=== PATIENT | female | born 1935 | race Asian ===

== ENCOUNTER 2019-06-20 10:22 | Inpatient (IN) | payer MEDICARE, MEDICAID ==
[~2019-06-20] VITALS: Ht 160 cm; Wt 63.6 kg
--- NOTE | 2019-06-20 10:39 | NUR ---
ED Nurse Note: PT BROUGHT IN TO ER TODAY BY [id number] FROM [place]. PT STATES SHE WAS WALKING, TRIPPED AND FELL. PT DENIES HEAD TRAUMA OR LOC. PT C/O LEFT HIP PAIN WITH ACTIVITY. PT DENIES PAIN AT REST. PER EMS, PT WAS AMBULATORY ON SCENE BUT AT BEDSIDE, PT STRUGGLES TO WALK [place] ER [facility]. PT AMBULATES WITH FULL ASSIST. LIMITED ROM OF LEFT LEG, FULL ROM OF KNEE, ANKLE AND DIGITS. CIRCULATION AND SENSATION INTACT, CAP REFILL <2 SECONDS. NO EXTERNAL ROTATION OR SHORTENING OF LEG NOTED.
--- NOTE | 2019-06-20 10:40 | NUR ---
ED Nurse Note: NO BRUISING OR BLEEDING NOTED TO LEFT HIP.
[2019-06-20 10:43] VITALS: BP 134/53
[2019-06-20] MEDS ORDERED: Morphine Sulfate 2mg/ml Inj(IV/IM USE ONLY) IVP ONE (10:45)
--- NOTE | 2019-06-20 10:50 | NUR ---
ED Nurse Note: XRAY AT BEDSIDE.
[2019-06-20 10:59] LABS: BASOPHILS % (AUTO) 0.9 % (0.0-2.0); EOSINOPHILS % (AUTO) 0.9 % (0.0-3.0); HEMATOCRIT 44.5 % (37.0-47.0); HEMOGLOBIN 14.9 G/DL (12.0-16.0); LYMPHOCYTES % (AUTO) 18.3 % (20.0-45.0); MEAN CORPUSCULAR VOLUME 91 FL (80-99); MONOCYTES % (AUTO) 6.5 % (1.0-10.0); NEUTROPHILS % (AUTO) 73.4 % (45.0-75.0); PLATELET COUNT 158 K/UL (150-450); RED BLOOD COUNT 4.87 M/UL (4.20-5.40); RED CELL DISTRIBUTION WIDTH 11.5 % (11.6-14.8); WHITE BLOOD COUNT 7.5 K/UL (4.8-10.8)
--- NOTE | 2019-06-20 11:03 | NUR ---
ED Nurse Note: PT TO CT VIA [facility].
[2019-06-20 11:08] LABS: INR 0.9 (0.9-1.1)
--- NOTE | 2019-06-20 11:16 | NUR ---
ED Nurse Note: PT BACK FROM CT VIA [facility].
[2019-06-20 11:51] LABS: ANION GAP 13 mmol/L (5-15); BLOOD UREA NITROGEN 16 mg/dL (7-18); CALCIUM 9.1 MG/DL (8.5-10.1); CARBON DIOXIDE 25 MMOL/L (21-32); CHLORIDE 102 MMOL/L (98-107); CREATININE 0.8 MG/DL (0.55-1.30); POTASSIUM 4.5 MMOL/L (3.5-5.1); SODIUM 139 MMOL/L (136-145)
[2019-06-20 11:59] LABS: ALANINE AMINOTRANSFERASE 34 U/L (12-78); ALBUMIN 3.7 G/DL (3.4-5.0); ALKALINE PHOSPHATASE 65 U/L (46-116); ASPARTATE AMINO TRANSFERASE 35 U/L (15-37); BILIRUBIN,TOTAL 0.8 MG/DL (0.2-1.0)
--- NOTE | 2019-06-20 12:00 | Diagnostic Imaging Report ---
EXAM: CT Pelvis Without Intravenous Contrast CLINICAL HISTORY: PAIN TECHNIQUE: Axial computed tomography images of the pelvis without intravenous contrast. CTDI is 81.7 mGy and DLP is 2705.5 mGy-cm. One or more of the following dose reduction techniques were used: automated exposure control, adjustment of the mA and or kV according to patient size, use of iterative reconstruction technique. COMPARISON: Left femur radiographs on 06 20 2019 FINDINGS: Bowel: Unremarkable. No obstruction. No mucosal thickening. Appendix: No findings to suggest acute appendicitis. Intraperitoneal space: Trace fluid in the pelvis. No free air. Bladder: Mild prominence of the bladder wall is nonspecific. Please correlate with urinalysis if concerned for cystitis. No stones. Reproductive: Prior hysterectomy. Bones joints: Nondisplaced fracture of the left sacrum. Nondisplaced, comminuted fractures of the left superior and inferior pubic rami. Osteopenia. Grade 1 anterolisthesis of L4 on L5. No dislocation. Soft tissues: Small fat-containing umbilical hernia. Vasculature: Extensive vascular calcifications. No lower abdominal aortic aneurysm. Lymph nodes: Nonspecific fat stranding and mildly prominent lymph nodes in the right inguinal region. IMPRESSION: 1. Nondisplaced fracture of the left sacrum. Nondisplaced, comminuted fractures of the left superior and inferior pubic rami. 2. Mild prominence of the bladder wall is nonspecific. Please correlate with urinalysis if concerned for cystitis.
--- NOTE | 2019-06-20 12:15 | Diagnostic Imaging Report ---
EXAM: XR Left Femur, 2 Views CLINICAL HISTORY: PAIN TECHNIQUE: Frontal and lateral views of the left femur. COMPARISON: None FINDINGS: Bones joints: Irregularity of the superior and inferior left pubic rami, concerning for fractures. Osteopenia. No left hip dislocation. Soft tissues: Vascular calcifications. IMPRESSION: Irregularity of the superior and inferior left pubic rami, concerning for fractures.
[2019-06-20 12:23] VITALS: BP 145/47
--- NOTE | 2019-06-20 12:47 | Emergency Room Report ---
History of Present Illness General Chief Complaint: Multiple Trauma/Fall Source: Patient Present Illness HPI 84-year-old female presents ED for evaluation. Had a mechanical trip and fall home today. No reported head injury. Complaining of left hip pain. Dull, 9 out of 10, nonradiating. Unable to walk. Denies hitting her head or LOC. No other aggravating or relieving factors. Denies any other associated symptoms Allergies: Coded Allergies: No Known Allergies (Unverified , 06/20/19) Patient History Past Medical History: DM, HTN Past Surgical History: none Pertinent Family History: none Social History: Denies: smoking, alcohol use, drug use Now: No Immunizations: UTD Reviewed Nursing Documentation: PMH: Agreed; PSxH: Agreed Nursing Documentation-PMH Hx Hypertension: Yes Hx Diabetes: Yes Review of Systems All Other Systems: negative except mentioned in HPI Physical Exam Vital Signs Date Time Temp Pulse Resp B/P (MAP) Pulse Ox O2 Delivery O2 Flow Rate FiO2 06/20/19 10:19 98.1 80 16 112/50 (70) 95 Room Air Sp02 EP Interpretation: reviewed, normal General Appearance: no apparent distress, alert, GCS 15, non-toxic Head: normocephalic Eyes: bilateral eye normal inspection, bilateral eye PERRL ENT: normal ENT inspection Neck: normal inspection Respiratory: normal inspection Cardiovascular #1: normal inspection Gastrointestinal: normal inspection Rectal: deferred Genitourinary: no CVA tenderness Musculoskeletal: decreased range of motion, tender - L hip pain Neurologic: alert, oriented x3, responsive, motor strength/tone normal, sensory intact, speech normal Psychiatric: normal inspection Skin: no rash Lymphatic: normal inspection Medical Decision Making Diagnostic Impression: Primary Impression: Pelvic fracture Qualified Codes: S32.9XXA - Fracture of unspecified parts of lumbosacral spine and pelvis, initial encounter for closed fracture Additional Impressions: Fall Qualified Codes: W19.XXXA - Unspecified fall, initial encounter Unable to walk ER Course Hospital Course 84-year-old female presents to ED with L hip pain s/p fall Differential diagnoses include: fracture, dislocation, contusion Clinical course Patient placed on stretcher. After initial history and physical I ordered labs , pain medication and imaging studies Labs reviewed- no leukocytosis noted, electrolytes okay, hemoglobin/hematocrit okay CT pelvis shows nondisplaced fracture of the left sacrum, nondisplaced fractures of the left superior and inferior pubic rami She is unable to walk. not safe for discharge and will require admission Case discussed with Dr. Antoine who agreed to consult on this case. Case discussed with Dr. Aguilar who agreed to accept the patient to his service for further care and support i. I feel this is a highly complex case requiring extensive working including EKG/Rhythm strip, Xray/CT/US, Blood/urine lab work, repeat exams while in ED, and administration of strong opiates/narcotics for pain control, admission to hospital or close patient follow up. Diagnosis - pelvic fx, fall, unable to walk Admitted to floor in serious condition Labs Test 06/20/19 10:40 White Blood Count 7.5 K/UL (4.8-10.8) Red Blood Count 4.87 M/UL (4.20-5.40) Hemoglobin 14.9 G/DL (12.0-16.0) Hematocrit 44.5 % (37.0-47.0) Mean Corpuscular Volume 91 FL (80-99) Mean Corpuscular Hemoglobin 30.6 PG (27.0-31.0) Mean Corpuscular Hemoglobin Concent 33.4 G/DL (32.0-36.0) Red Cell Distribution Width 11.5 % (11.6-14.8) Platelet Count 158 K/UL (150-450) Mean Platelet Volume 9.4 FL (6.5-10.1) Neutrophils (%) (Auto) 73.4 % (45.0-75.0) Lymphocytes (%) (Auto) 18.3 % (20.0-45.0) Monocytes (%) (Auto) 6.5 % (1.0-10.0) Eosinophils (%) (Auto) 0.9 % (0.0-3.0) Basophils (%) (Auto) 0.9 % (0.0-2.0) Prothrombin Time 10.0 SEC (9.30-11.50) Prothromb Time International Ratio 0.9 (0.9-1.1) Activated Partial Thromboplast Time 25 SEC (23-33) Sodium Level 139 MMOL/L (136-145) Potassium Level 4.5 MMOL/L (3.5-5.1) Chloride Level 102 MMOL/L (98-107) Carbon Dioxide Level 25 MMOL/L (21-32) Anion Gap 13 mmol/L (5-15) Blood Urea Nitrogen 16 mg/dL (7-18) Creatinine 0.8 MG/DL (0.55-1.30) Estimat Glomerular Filtration Rate mL/min (>60) Glucose Level 253 MG/DL (74-106) Calcium Level 9.1 MG/DL (8.5-10.1) Total Bilirubin 0.8 MG/DL (0.2-1.0) Aspartate Amino Transf (AST/SGOT) 35 U/L (15-37) Alanine Aminotransferase (ALT/SGPT) 34 U/L (12-78) Alkaline Phosphatase 65 U/L (46-116) Total Protein 7.3 G/DL (6.4-8.2) Albumin 3.7 G/DL (3.4-5.0) Globulin 3.6 g/dL Albumin/Globulin Ratio 1.0 (1.0-2.7) Other X-Ray Diagnostic Results Other X-Ray Diagnostic Results : X-Ray ordered: L femur # of Views/Limited Vs Complete: 3 View Indication: Pain Interpretation: no dislocation, no soft tissue swelling, other - superior/ inferior pubic rami fx. L sacrum fx Impression: Other - fx Electronically Signed by: Electronically signed by Corby Fermin MD CT/MRI/US Diagnostic Results CT/MRI/US Diagnostic Results : Imaging Test Ordered: CT Pelvis Impression IMPRESSION: 1. Nondisplaced fracture of the left sacrum. Nondisplaced, comminuted fractures of the left superior and inferior pubic rami. 2. Mild prominence of the bladder wall is nonspecific. Please correlate with urinalysis if concerned for cystitis. Last Vital Signs Date Time Temp Pulse Resp B/P (MAP) Pulse Ox O2 Delivery O2 Flow Rate FiO2 06/20/19 12:23 98.4 71 21 145/47 97 Room Air Status: improved Disposition: ADMITTED INPATIENT Condition: Serious Referrals: NOT CHOSEN IPA/,REFERRING (PCP) Corby Fermin MD Jun 20, 2019 12:47
--- NOTE | 2019-06-20 14:19 | NUR ---
ED Nurse Note: report given to Godwin Boyd, endorsed all plan of care to Godwin BOYD.
--- NOTE | 2019-06-20 14:45 | NUR ---
NURSE NOTES: Received pt from ER via gurney. Report given by KATT Simmons. Room air. AAO x 4. No s/s of distress. C/O of 8/10 pain on left hip when pt moves. Vital sign BP 139/51 RI 78 T 99.6 RR 19 SpO2 91%. IV on R FA 20g intact and patent, with saline lock. Skin intact. All belongings are accounted for. Orientation on the unit given. Paged for admission orders and awaiting for response. Side rails x2. Bed in the lowest, locked, and alarm on. Call light within reach. Will continue to monitor
[2019-06-20] MEDS ORDERED: oxyCODONE 5mg IR tab ORAL PRN (15:00)
[2019-06-20] MEDS ORDERED: Miralax 17gm pkt ORAL PRN (15:00)
--- NOTE | 2019-06-20 15:18 | History and Physical ---
History of Present Illness General Date patient seen: Jun 20, 2019 Time patient seen: 14:00 Reason for Hospitalization: Multiple Trauma/Fall Present Illness HPI Mitchel Bahena is a 84 yo woman with PMH of IDDM, CAD, and HTN who presented after mechanical fall outside. Slovenian translation provided by RN at bedside. Patient states she was walking outdoors on the sidewalk while it was raining when she slipped and fell to the side. She endorses pain in left hip, sharp, non radiating, now only ~2/10 after morphine given in ED. Denies any trauma to the head or LOC. Denies any fever, chills, nausea, vomiting, dizziness, lightheadedness. Patient not a great historian and besides DM, HTN, and "heart disease" was unable to provide other medical history, notes her memory has not been as good as before. Also states she takes 11 medications at home but unable to provide names or doses of any medication besides "insulin." States she gets her medications at [facility], attempted to obtain medication reconciliation from pharmacy but staff at pharmacy did not speak Pakistani, attempted to recall with RN at phone providing translation but no one answered after several attempts. Patient states she lives alone at home, has been very independent, does not require assistive device for ambulation. States she has a daughter in [place] but does not want medical staff to notify daughter of her admission as she does not want to bother her. States she has help around the house from caregiver 3x a week. Also has many friends at [employer] who provide support. Allergies: Coded Allergies: No Known Allergies (Unverified , 06/20/19) Medication History Medications Narrative Insulin Patient History History Provided By: Patient, Medical Record Healthcare decision maker Resuscitation status Full Code Advanced Directive on File Patient History Narrative "heart disease" Past Medical/Surgical History Past Medical/Surgical History: (1) History of diabetes mellitus (2) History of hypertension Family History Family History: Patient reports no known family medical history. Social History Social History: (1) Non-smoker (2) Current non-drinker of alcohol Review of Systems Eye: Reports: no symptoms ENT: Reports: no symptoms Respiratory: Reports: no symptoms Cardiovascular: Reports: no symptoms Gastrointestinal: Reports: no symptoms Genitourinary: Reports: no symptoms Musculoskeletal: Reports: other - left hip pain Skin: Reports: no symptoms Psychiatric: Reports: no symptoms Neurological: Reports: no symptoms Endocrine: Reports: other - uses insulin at home Hematologic/Lymphatic: Reports: no symptoms Physical Exam General Appearance: no apparent distress, alert, alert oriented x3 Lines, tubes and drains: peripheral HEENT: normocephalic, atraumatic, mucous membranes moist, PERRL, EOMI Neck: non-tender, supple Respiratory/Chest: lungs clear, normal breath sounds, no respiratory distress, no accessory muscle use Cardiovascular/Chest: normal peripheral pulses, normal rate, regular rhythm Abdomen: normal bowel sounds, non tender, soft, no mass Extremities: no edema Skin Exam: warm/dry 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 grossly normal, alert, oriented x 3, responsive, normal mood/affect Musculoskeletal: other - left hip ROM limited 2/2 pain Last 24 Hour Vital Signs Date Time Temp Pulse Resp B/P (MAP) Pulse Ox O2 Delivery O2 Flow Rate FiO2 06/20/19 14:55 Room Air 06/20/19 14:20 98.3 74 18 132/56 98 Room Air 06/20/19 12:23 98.4 71 21 145/47 97 Room Air 06/20/19 10:43 98.2 72 24 134/53 Room Air 06/20/19 10:43 72 24 Room Air 06/20/19 10:19 98.1 80 16 112/50 (70) 95 Room Air Laboratory Tests Test 06/20/19 10:40 White Blood Count 7.5 K/UL (4.8-10.8) Red Blood Count 4.87 M/UL (4.20-5.40) Hemoglobin 14.9 G/DL (12.0-16.0) Hematocrit 44.5 % (37.0-47.0) Mean Corpuscular Volume 91 FL (80-99) Mean Corpuscular Hemoglobin 30.6 PG (27.0-31.0) Mean Corpuscular Hemoglobin Concent 33.4 G/DL (32.0-36.0) Red Cell Distribution Width 11.5 % (11.6-14.8) L Platelet Count 158 K/UL (150-450) Mean Platelet Volume 9.4 FL (6.5-10.1) Neutrophils (%) (Auto) 73.4 % (45.0-75.0) Lymphocytes (%) (Auto) 18.3 % (20.0-45.0) L Monocytes (%) (Auto) 6.5 % (1.0-10.0) Eosinophils (%) (Auto) 0.9 % (0.0-3.0) Basophils (%) (Auto) 0.9 % (0.0-2.0) Prothrombin Time 10.0 SEC (9.30-11.50) Prothromb Time International Ratio 0.9 (0.9-1.1) Activated Partial Thromboplast Time 25 SEC (23-33) Sodium Level 139 MMOL/L (136-145) Potassium Level 4.5 MMOL/L (3.5-5.1) Chloride Level 102 MMOL/L (98-107) Carbon Dioxide Level 25 MMOL/L (21-32) Anion Gap 13 mmol/L (5-15) Blood Urea Nitrogen 16 mg/dL (7-18) Creatinine 0.8 MG/DL (0.55-1.30) Estimat Glomerular Filtration Rate mL/min (>60) Glucose Level 253 MG/DL (74-106) H Calcium Level 9.1 MG/DL (8.5-10.1) Total Bilirubin 0.8 MG/DL (0.2-1.0) Aspartate Amino Transf (AST/SGOT) 35 U/L (15-37) Alanine Aminotransferase (ALT/SGPT) 34 U/L (12-78) Alkaline Phosphatase 65 U/L (46-116) Total Protein 7.3 G/DL (6.4-8.2) Albumin 3.7 G/DL (3.4-5.0) Globulin 3.6 g/dL Albumin/Globulin Ratio 1.0 (1.0-2.7) Height (Feet): 5 Height (Inches): 3.00 Weight (Pounds): 140 Medications Current Medications Medications (Trade) Dose Ordered Sig/Ruchi Route PRN Reason Start Time Stop Time Status Last Admin Dose Admin Acetaminophen (Tylenol) 650 mg Q6H PRN ORAL Mild Pain/Temp > 100.5 06/20/19 15:00 07/20/19 14:59 Dextrose (Dextrose 50%) 25 ml Q30M PRN IV Hypoglycemia 06/20/19 15:00 07/20/19 14:59 Dextrose (Dextrose 50%) 50 ml Q30M PRN IV Hypoglycemia 06/20/19 15:00 07/20/19 14:59 Docusate Sodium (Colace) 100 mg EVERY 12 HOURS ORAL 06/20/19 21:00 07/20/19 20:59 Enoxaparin Sodium (Lovenox) 40 mg DAILY@2100 SUBQ 06/20/19 16:00 07/20/19 15:59 Oxycodone HCl (Roxicodone) 5 mg Q4H PRN ORAL Moderate Pain (Pain Scale 4-6) 06/20/19 15:00 06/27/19 14:59 Oxycodone HCl (Roxicodone) 10 mg Q4H PRN ORAL Severe Pain (Pain Scale 7-10) 06/20/19 15:00 06/27/19 14:59 Polyethylene Glycol (Miralax) 17 gm HSPRN PRN ORAL Constipation 06/20/19 15:00 07/20/19 14:59 Assessment/Plan Status: stable Assessment/Plan: Mitchel Bahena is a 84 yo woman with PMH of HTN, CAD, and IDDM who presented after mechanical fall with left hip pain, found with nondisplaced fracture of left sacrum. Mechanical fall Left pelvic fracture - Orthopedics Dr. Antoine to evaluate, per ED attending no plan for surgery at this time - Pelvic CT: Nondisplaced fracture L sacrum. Nondisplaced comminuted fracture of L superior and inferior pubic rami. - Femur xray: Irregularity of superior and inferior left pubic rami concerning for fracture - Pain control with tylenol 650mg PO q6hrs PRN mild pain, oxycodone 5mg PO q6hrs PRN moderate pain, oxycodone 10mg PO q6hrs PRN severe pain - PT consult. Case management consult for d/c planning, will need rehab IDDM with hyperglycemia - Patient states on insulin at home, unable to state dose - Start levemir 5U qhs and SSI for now - Monitor FS qachs and adjust as needed - Glucose 253 on admission on chemistry HTN, CAD - Patient unable to state which medications she's on at home - Pharmacy does not speak Pakistani ([facility] [phone]) and unable to reach again with RN as health program specialist - BP acceptable at this time, will monitor for need for BP medication FEN: Carbs consistent diet No IVF Lovenox DVT ppx Full Code Discussed with ED attending, patient, and RN. I spent 50 minutes on this patient 's care, including >50% counseling and coordination of care. Diagnosis [place] I: Mechanical fall Left superior and inferior pubic rami fracture IDDM with hyperglycemia hx HTN, CAD Nurys Vargas M.D. Jun 20, 2019 15:18
[2019-06-20 16:00] VITALS: BP 122/52
[2019-06-20] MEDS: Enoxaparin 40mg Inj SUBQ SCH (16:00)
[2019-06-20] MEDS: NovoLOG Insulin Flexpen SUBQ SCH ×2 (16:57→20:52)
--- NOTE | 2019-06-20 19:21 | NUR ---
HAND-OFF: Report given to KATT Nicholson.
--- NOTE | 2019-06-20 19:42 | NUR ---
NURSE NOTES: Received report from KATT Connelly. Patient a/a/o x 4, breathing unlabored without distress, discomfort, or sob on room air. Patient on bedrest and denies pain when she's not moving. IV noted on the right forearm intact, clean, and dry. Bed placed on lowest level with alarm,brake, and siderails up for patient safety. Call light placed within reach. Will continue to monitor and provide care as ordered.
[2019-06-20 20:00] VITALS: BP 115/59
[2019-06-20] MEDS: Docusate 100mg cap ORAL SCH (21:01)
[2019-06-20] MEDS: Levemir Flexpen SUBQ SCH (21:05)
[2019-06-21] VITALS: BP 107/56
[2019-06-21 04:00] VITALS: BP 124/59
[2019-06-21] MEDS: NovoLOG Insulin Flexpen SUBQ SCH ×5 (06:22→21:00)
--- NOTE | 2019-06-21 07:35 | NUR ---
NURSE NOTES: Nurse report given by KATT Nicholson. Patient's awake in bed, eating breakfast. No s/s of distress or SOB. Pain 4/10 at Left hip. IV is patent and asymptomatic. Bed low and locked, call light within reach, side rails x 2, safety precaution is applied. All the needs meet. Will continue to monitor.
--- NOTE | 2019-06-21 07:35 | NUR ---
HAND-OFF: Report given to KATT Bates (Uyen).
[2019-06-21 08:00] VITALS: BP 116/49
[2019-06-21] MEDS: Docusate 100mg cap ORAL SCH ×2 (09:27→20:58)
[2019-06-21] MEDS: oxyCODONE 5mg IR tab ORAL PRN (11:47)
[2019-06-21 12:00] VITALS: BP 126/49
--- NOTE | 2019-06-21 14:00 | NUR ---
NURSE NOTES: Patient was having physical therapist and she felt nauseated. Patient vomited 1 time. Checked Blood glucose: 184. Asked Dr. Vargas to have zofran order for her. Order acknowledged and carried out. Administered 4mg Zofran IVP PRN q6hr. Patient has ice chips. BP 156/68, MT 62, RR 20, 02 89%. Administered prn Oxygen 2L Nasal cannula. Patient O2 goes up between 93-95%. Rechecked Vital sign after 5 minutes post zofran administration: BP 128/50, MT 75, RR 19, O2 95%. Patient stated she feels better with the ice chips, the zofran and sitting down. Patient denies feeling nauseated anymore. Will continue to monitor closely.
[2019-06-21 16:00] VITALS: BP 156/68
--- NOTE | 2019-06-21 16:08 | General Progress Note ---
Assessment/Plan Status: stable Assessment/Plan: Mitchel Bahena is a 84 yo woman with PMH of HTN, CAD, and IDDM who presented after mechanical fall with left hip pain, found with nondisplaced fracture of left sacrum. Mechanical fall Left pelvic fracture - Orthopedics Dr. Antoine to evaluate, per ED attending no plan for surgery at this time. Awaiting ortho recs. - Pelvic CT: Nondisplaced fracture L sacrum. Nondisplaced comminuted fracture of L superior and inferior pubic rami. - Femur xray: Irregularity of superior and inferior left pubic rami concerning for fracture - Pain control with tylenol 650mg PO q6hrs PRN mild pain, oxycodone 5mg PO q6hrs PRN moderate pain, oxycodone 10mg PO q6hrs PRN severe pain - PT consult. Case management consult for d/c planning, will need rehab IDDM with hyperglycemia - Patient states on insulin at home, unable to state dose - Started levemir 5U qhs and SSI, add novolog 2U TID premeal - Monitor FS qachs and adjust as needed HTN, CAD - Patient unable to state which medications she's on at home - Pharmacy does not speak Palestinian ([facility] [phone]) and unable to reach again with RN as operator and truck driver - BP acceptable at this time, will monitor for need for BP medication FEN: Carbs consistent diet No IVF Lovenox DVT ppx Full Code Discussed with patient and RN. I spent 25 minutes on this patient's care, including >50% counseling and coordination of care. Subjective Date patient seen: Jun 21, 2019 Constitutional: Reports: other - pain in left hip, received PRN oxycodone, medication helping HEENT: Reports: no symptoms Cardiovascular: Reports: no symptoms Respiratory: Reports: no symptoms Gastrointestinal/Abdominal: Reports: no symptoms Genitourinary: Reports: no symptoms Neurologic/Psychiatric: Reports: no symptoms Endocrine: Reports: no symptoms Hematologic/Lymphatic: Reports: no symptoms Allergies: Coded Allergies: No Known Allergies (Unverified , 06/20/19) Subjective Patient seen and examined. States intermittent left hip pain worse with movement. Received PRN tylenol and oxycodone with improvement. Objective Last 24 Hour Vital Signs Date Time Temp Pulse Resp B/P (MAP) Pulse Ox O2 Delivery O2 Flow Rate FiO2 06/21/19 12:00 98.3 67 16 126/49 (74) 92 06/21/19 09:00 Room Air 06/21/19 08:00 98.4 70 18 116/49 (71) 98 06/21/19 04:00 97.1 72 18 124/59 (80) 98 06/21/19 00:00 98.7 75 18 107/56 (73) 98 06/20/19 21:00 Room Air 06/20/19 20:00 99.5 75 18 115/59 (77) 98 Intake and Output 06/20/19 06/21/19 19:00 07:00 Intake Total 240 ml 120 ml Output Total 300 ml Balance 240 ml -180 ml Intake Oral 240 ml 120 ml Output Urine Total 300 ml # Voids 1 Height (Feet): 5 Height (Inches): 3.00 Weight (Pounds): 140 General Appearance: no apparent distress, alert Neck: supple Cardiovascular: normal peripheral pulses, normal rate, regular rhythm Respiratory/Chest: lungs clear, normal breath sounds, no respiratory distress Abdomen: normal bowel sounds, non tender, soft Pelvis: other - left hip tenderness Extremities: non-tender Edema: no edema noted Arm (L), no edema noted Arm (R), no edema noted Leg (L), no edema noted Leg (R), no edema noted Pedal (L), no edema noted Pedal (R), no edema noted Generalized Neurologic: alert, responsive, normal mood/affect Skin: warm/dry Nurys Vargas M.D. Jun 21, 2019 16:08
--- NOTE | 2019-06-21 16:14 | NUR ---
PT note PT jose completed, tx initiated. Patient c/o pain on the left hip, increased with any movement. Was able to sit at the EOB with assist of 2 persons. Patient needs PT to address her pain, muscle weakness, transfers,and gait. Will place patient on NWB on the LLE until verified with ortho MD. Addendum: 06/21/19 at 1615 by CHIN NOVOA PT Amended: Links added.
--- NOTE | 2019-06-21 19:23 | NUR ---
HAND-OFF: Report given to KATT Nicholson. Patient's stable, plan of care endorsed. .
--- NOTE | 2019-06-21 19:30 | NUR ---
NURSE NOTES: Received report from KATT Madrigal (Luna). Patient a/a/o x 4, breathing unlabored without distress, discomfort, or sob on 2L O2 via NC. Denies pain at this time. Patient nauseated and vomited during previous shift. Currently taking ice chips. Patient verbalized that ice chip helps to control the nauseating sensation. IV site on right forearm intact, clean, and dry. Bed placed at the lowest with alarm, brake, and siderails up for safety. Call light placed within reach. Will continue to monitor and provide care as ordered.
[2019-06-21 20:00] VITALS: BP 125/62
[2019-06-21] MEDS: Levemir Flexpen SUBQ SCH (21:00)
[2019-06-21] MEDS: Enoxaparin 40mg Inj SUBQ SCH (21:01)
[2019-06-22] VITALS: BP 133/52
[2019-06-22 04:00] VITALS: BP 150/63
[2019-06-22] MEDS: NovoLOG Insulin Flexpen SUBQ SCH ×7 (06:09→20:18)
[2019-06-22 07:02] LABS: BASOPHILS % (AUTO) 0.7 % (0.0-2.0); EOSINOPHILS % (AUTO) 2.3 % (0.0-3.0); HEMATOCRIT 40.4 % (37.0-47.0); HEMOGLOBIN 13.9 G/DL (12.0-16.0); LYMPHOCYTES % (AUTO) 12.8 % (20.0-45.0); MEAN CORPUSCULAR VOLUME 91 FL (80-99); MONOCYTES % (AUTO) 8.1 % (1.0-10.0); NEUTROPHILS % (AUTO) 76.1 % (45.0-75.0); PLATELET COUNT 142 K/UL (150-450); RED BLOOD COUNT 4.43 M/UL (4.20-5.40); RED CELL DISTRIBUTION WIDTH 11.9 % (11.6-14.8); WHITE BLOOD COUNT 7.3 K/UL (4.8-10.8)
[2019-06-22 07:16] LABS: ANION GAP 7 mmol/L (5-15); BLOOD UREA NITROGEN 14 mg/dL (7-18); CALCIUM 8.7 MG/DL (8.5-10.1); CARBON DIOXIDE 26 MMOL/L (21-32); CHLORIDE 107 MMOL/L (98-107); CREATININE 0.8 MG/DL (0.55-1.30); POTASSIUM 3.9 MMOL/L (3.5-5.1); SODIUM 140 MMOL/L (136-145)
--- NOTE | 2019-06-22 07:59 | NUR ---
HAND-OFF: Report given to KATT North.
[2019-06-22 08:00] VITALS: BP 131/53
[2019-06-22] MEDS: Docusate 100mg cap ORAL SCH ×2 (08:24→20:15)
--- NOTE | 2019-06-22 09:35 | General Progress Note ---
Assessment/Plan Problem List: (1) Fall ICD Codes: W19.XXXA - Unspecified fall, initial encounter SNOMED: 8889290, 246536986 Qualifiers: Qualified Codes: W19.XXXA - Unspecified fall, initial encounter (2) Pelvic fracture ICD Codes: S32.9XXA - Fracture of unspecified parts of lumbosacral spine and pelvis, initial encounter for closed fracture SNOMED: 79286340 Qualifiers: Qualified Codes: S32.9XXA - Fracture of unspecified parts of lumbosacral spine and pelvis, initial encounter for closed fracture (3) Unable to walk ICD Codes: R26.2 - Difficulty in walking, not elsewhere classified SNOMED: 873910884 (4) History of hypertension ICD Codes: Z86.79 - Personal history of other diseases of the circulatory system SNOMED: 852566306 (5) History of diabetes mellitus ICD Codes: Z86.39 - Personal history of other endocrine, nutritional and metabolic disease SNOMED: 639719013 Status: stable Assessment/Plan: Mitchel Bahena is a 84 yo woman with PMH of HTN, CAD, and IDDM who presented after mechanical fall with left hip pain, found with nondisplaced fracture of left sacrum. Mechanical fall Left pelvic fracture - Orthopedics Dr. Antoine to evaluate, per ED attending no plan for surgery at this time. Awaiting ortho recs. will contact. - Pelvic CT: Nondisplaced fracture L sacrum. Nondisplaced comminuted fracture of L superior and inferior pubic rami. - Femur xray: Irregularity of superior and inferior left pubic rami concerning for fracture - Pain control with tylenol 650mg PO q6hrs PRN mild pain, oxycodone 5mg PO q6hrs PRN moderate pain, oxycodone 10mg PO q6hrs PRN severe pain - PT consult. 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 RN is calling the pharmacy. I will reconcile home meds with her. FEN: Carbs consistent diet No IVF Lovenox DVT ppx Full Code Discussed with patient and RN. I spent 25 minutes on this patient's care, including >50% counseling and coordination of care. Subjective Date patient seen: Jun 22, 2019 ROS Limited/Unobtainable: No Constitutional: Reports: other - left hip pain; Denies: no symptoms, chills, diaphoresis, fever, malaise, weakness HEENT: Denies: no symptoms, eye pain, blurred vision, tearing, double vision, ear pain, ear discharge, nose pain, nose congestion, throat pain, throat swelling, mouth pain, mouth swelling, other Cardiovascular: Denies: no symptoms, chest pain, edema, irregular heart rate, lightheadedness, palpitations, syncope, other Respiratory: Denies: no symptoms, cough, orthopnea, shortness of breath, SOB with excertion, SOB at rest, sputum, stridor, wheezing, other Gastrointestinal/Abdominal: Denies: no symptoms, abdomen distended, abdominal pain, black stools, tarry stools, blood in stool, constipated, diarrhea, difficulty swallowing, nausea, poor appetite, poor fluid intake, rectal bleeding , vomiting, other Genitourinary: Denies: no symptoms, burning, discharge, frequency, flank pain, hematuria, incontinence, pain, urgency, other Neurologic/Psychiatric: Denies: no symptoms, anxiety, depressed, emotional problems, headache, numbness, paresthesia, pre-existing deficit, seizure, tingling, tremors, weakness, other Endocrine: Denies: no symptoms, excessive sweating, flushing, intolerance to cold, intolerance to heat, increased hunger, increased thirst, increased urine, unexplained weight gain, unexplained weight loss, other Hematologic/Lymphatic: Denies: no symptoms, anemia, easy bleeding, easy bruising, other Allergies: Coded Allergies: No Known Allergies (Unverified , 06/20/19) Subjective Swedish speaking Nurse [place] speaker translating c/p left hip pain has a daughter in [place], doesn't want us to contact her daughter Objective Last 24 Hour Vital Signs Date Time Temp Pulse Resp B/P (MAP) Pulse Ox O2 Delivery O2 Flow Rate FiO2 06/22/19 08:00 98.2 74 18 131/53 (79) 95 06/22/19 04:00 98.4 75 18 150/63 (92) 93 06/22/19 00:00 99.0 73 19 133/52 (79) 96 06/21/19 21:00 Room Air 06/21/19 20:00 98.0 73 19 125/62 (83) 97 06/21/19 16:00 98.6 75 17 156/68 (97) 94 06/21/19 12:00 98.3 67 16 126/49 (74) 92 Intake and Output 06/21/19 06/22/19 19:00 07:00 Intake Total 350 ml 300 ml Balance 350 ml 300 ml Intake Oral 350 ml 300 ml # Voids 2 1 Laboratory Tests 06/22/19 06:05: White Blood Count 7.3, Red Blood Count 4.43, Hemoglobin 13.9, Hematocrit 40.4, Mean Corpuscular Volume 91, Mean Corpuscular Hemoglobin 31.3H, Mean Corpuscular Hemoglobin Concent 34.4, Red Cell Distribution Width 11.9, Platelet Count 142L, Mean Platelet Volume 9.4, Neutrophils (%) (Auto) 76.1H, Lymphocytes (%) (Auto) 12.8L, Monocytes (%) (Auto) 8.1, Eosinophils (%) (Auto) 2.3, Basophils (%) (Auto ) 0.7, Sodium Level 140, Potassium Level 3.9, Chloride Level 107, Carbon Dioxide Level 26, Anion Gap 7, Blood Urea Nitrogen 14, Creatinine 0.8, Estimat Glomerular Filtration Rate , Glucose Level 214H, Hemoglobin A1c 8.7H, Calcium Level 8.7 Height (Feet): 5 Height (Inches): 3.00 Weight (Pounds): 140 Objective General Appearance: no apparent distress, alert Neck: supple Cardiovascular: normal peripheral pulses, normal rate, regular rhythm Respiratory/Chest: lungs clear, normal breath sounds, no respiratory distress Abdomen: normal bowel sounds, non tender, soft Pelvis: other - left hip tenderness Extremities: non-tender Edema: no edema noted Arm (L), no edema noted Arm (R), no edema noted Leg (L), no edema noted Leg (R), no edema noted Pedal (L), no edema noted Pedal (R), no edema noted Generalized Neurologic: alert, responsive, normal mood/affect Skin: warm/dry Tera Zamorano M.D. Jun 22, 2019 09:35
--- NOTE | 2019-06-22 09:50 | NUR ---
NURSE NOTES: Patient received in stable condition, breathing unlabored with nasal cannula. Reports discomfort in hip area but denies pain medication at this time. Denies nausea. RN called [facility] and requested patient's home medications be faxed. Unit's telephone and fax phone number provided. Call light placed within reach, will continue to monitor.
[2019-06-22] MEDS: oxyCODONE 5mg IR tab ORAL PRN (11:53)
[2019-06-22 12:00] VITALS: BP 129/65
[2019-06-22 16:00] VITALS: BP 109/50
--- NOTE | 2019-06-22 16:07 | NUR ---
CASE MANAGEMENT:REVIEW 84 YR OLD FEMALE BIBA CC: TRIPPED FELL. UNABLE TO WALK SI: PELVIC FRACTURE 98.0 80 16 112/50 95% ON RA GLUCOSE+253 IS: IV MORPHINE CT PELVIS XRAY FEMUR : TO MED/SURG 4 EAST IS: OXYCODONE PO Q4HRS PRN TYLENOL PO Q4HRS PRN
--- NOTE | 2019-06-22 17:54 | Orthopedic Progress Note ---
Orthopedic - Progress Note Subjective Symptoms: other Additional Comments 84 year old Lao speaking women who slipped and fell at home. Wasn't able to walk and was admitted after CT scan showed non-displaced fractures of the left sacrum and anterior pelvis. Objective Last 24 Hour Vital Signs Date Time Temp Pulse Resp B/P (MAP) Pulse Ox O2 Delivery O2 Flow Rate FiO2 06/22/19 16:00 98.4 74 16 109/50 (69) 95 06/22/19 13:54 129/65 06/22/19 12:00 98.6 75 18 129/65 (86) 96 06/22/19 09:00 Room Air 06/22/19 08:00 98.2 74 18 131/53 (79) 95 06/22/19 04:00 98.4 75 18 150/63 (92) 93 06/22/19 00:00 99.0 73 19 133/52 (79) 96 06/21/19 21:00 Room Air 06/21/19 20:00 98.0 73 19 125/62 (83) 97 Intake and Output 06/21/19 06/22/19 19:00 07:00 Intake Total 350 ml 300 ml Balance 350 ml 300 ml Intake Oral 350 ml 300 ml # Voids 2 1 Laboratory Tests Test 06/22/19 06:05 White Blood Count 7.3 K/UL (4.8-10.8) Red Blood Count 4.43 M/UL (4.20-5.40) Hemoglobin 13.9 G/DL (12.0-16.0) Hematocrit 40.4 % (37.0-47.0) Mean Corpuscular Volume 91 FL (80-99) Mean Corpuscular Hemoglobin 31.3 PG (27.0-31.0) H Mean Corpuscular Hemoglobin Concent 34.4 G/DL (32.0-36.0) Red Cell Distribution Width 11.9 % (11.6-14.8) Platelet Count 142 K/UL (150-450) L Mean Platelet Volume 9.4 FL (6.5-10.1) Neutrophils (%) (Auto) 76.1 % (45.0-75.0) H Lymphocytes (%) (Auto) 12.8 % (20.0-45.0) L Monocytes (%) (Auto) 8.1 % (1.0-10.0) Eosinophils (%) (Auto) 2.3 % (0.0-3.0) Basophils (%) (Auto) 0.7 % (0.0-2.0) Sodium Level 140 MMOL/L (136-145) Potassium Level 3.9 MMOL/L (3.5-5.1) Chloride Level 107 MMOL/L (98-107) Carbon Dioxide Level 26 MMOL/L (21-32) Anion Gap 7 mmol/L (5-15) Blood Urea Nitrogen 14 mg/dL (7-18) Creatinine 0.8 MG/DL (0.55-1.30) Estimat Glomerular Filtration Rate mL/min (>60) Glucose Level 214 MG/DL (74-106) H Hemoglobin A1c 8.7 % (4.3-6.0) H Calcium Level 8.7 MG/DL (8.5-10.1) Neuro Status: normal Additional Comments Non-displaced pelvic fractures. Assessment Additional Comments 84 year old with non-operative pelvis fractures. May be WBAT with PT. DVT prophylaxis is recommended if not able to mobilize well. Plan Plan: PT, pain management, discharge plan Additional Comments May follow up with ortho in 7-10 days. Thank you for the opportunity to consult. Michael Antoine MD Jun 22, 2019 17:54
[2019-06-22] MEDS: Enoxaparin 40mg Inj SUBQ SCH (19:50)
--- NOTE | 2019-06-22 19:50 | NUR ---
HAND-OFF: Report given to Geeta BOLIVAR.
[2019-06-22 20:00] VITALS: BP 103/50
[2019-06-22] MEDS: Atorvastatin 20mg tab ORAL SCH (20:15)
[2019-06-22] MEDS: Levemir Flexpen SUBQ SCH (20:17)
[2019-06-23] VITALS: BP 129/52
[2019-06-23 04:00] VITALS: BP 138/52
[2019-06-23] MEDS: sitaGLIPtin 50mg tab ORAL SCH (05:52)
[2019-06-23] MEDS: NovoLOG Insulin Flexpen SUBQ SCH ×7 (05:54→20:37)
[2019-06-23 06:20] LABS: BASOPHILS % (AUTO) 0.6 % (0.0-2.0); HEMATOCRIT 38.5 % (37.0-47.0); HEMOGLOBIN 13.1 G/DL (12.0-16.0); LYMPHOCYTES % (AUTO) 13.1 % (20.0-45.0); MEAN CORPUSCULAR VOLUME 91 FL (80-99); MONOCYTES % (AUTO) 8.5 % (1.0-10.0); NEUTROPHILS % (AUTO) 75.9 % (45.0-75.0); PLATELET COUNT 140 K/UL (150-450); RED BLOOD COUNT 4.24 M/UL (4.20-5.40); RED CELL DISTRIBUTION WIDTH 11.7 % (11.6-14.8); WHITE BLOOD COUNT 7.1 K/UL (4.8-10.8)
[2019-06-23 06:33] LABS: ANION GAP 6 mmol/L (5-15); BLOOD UREA NITROGEN 13 mg/dL (7-18); CALCIUM 8.6 MG/DL (8.5-10.1); CARBON DIOXIDE 28 MMOL/L (21-32); CHLORIDE 105 MMOL/L (98-107); CREATININE 0.6 MG/DL (0.55-1.30); POTASSIUM 3.8 MMOL/L (3.5-5.1); SODIUM 139 MMOL/L (136-145)
--- NOTE | 2019-06-23 06:53 | NUR ---
HAND-OFF: Report given to Jose Martin Bahena RN.
--- NOTE | 2019-06-23 07:24 | NUR ---
NURSE NOTES: PT AXOX4, CALM, RESTING IN BED. PT STATES SHE HAS PAIN IN LEFT HIP, REQUESTS FOR PAIN MEDICATION AFTER BREAKFAST. IN NO APPARENT DISTRESS AT THIS TIME. BED IN LOWEST POSITION WITH BEDSIDE RAILS X2 RAISED. PT EDUCATED TO USE CALL LIGHT FOR ASSISTANCE. PT VERBALIZED UNDERSTANDING. WILL CONTINUE TO MONITOR.
[2019-06-23 07:38] VITALS: BP 116/50
[2019-06-23] MEDS: Aspirin Baby 81mg ORAL SCH (08:05)
[2019-06-23] MEDS: Docusate 100mg cap ORAL SCH ×2 (08:05→20:35)
[2019-06-23] MEDS: oxyCODONE 5mg IR tab ORAL PRN ×2 (08:05→17:04)
[2019-06-23] MEDS: Metoprolol Succinate XL 50mg tab ORAL SCH (08:10)
--- NOTE | 2019-06-23 10:08 | NUR ---
NURSE NOTES: WOUND CARE NURSE EVALUATED PT FOR WOUNDS. NO WOUNDS NOTED. OPTIFOAM DRESSING APPLIED TO SACRUM AND BILATERAL HEELS FOR PROTECTION. PT EDUCATED ON REPOSITIONING Q2H TO PREVENT SKIN BREAKDOWN.
[2019-06-23 12:00] VITALS: BP 117/56
[2019-06-23 16:00] VITALS: BP 130/56
--- NOTE | 2019-06-23 16:00 | NUR ---
NURSE NOTES: DR SOTO PANCHAL MADE AWARE OF NO BM FOR 5 DAYS PER PT. PER MD, CONTINUE WITH PRN MIRALAX ORDERED.
--- NOTE | 2019-06-23 16:00 | NUR ---
NURSE NOTES: DR STARKS AT BEDSIDE EDUCATING ON POSSIBLE PLAN TO DISCHARGE REHAB/SNF. PT REFUSING SNF PLACEMENT AT THIS TIME. PT LIVES ALONE, WITH A "CAREGIVER/FRIEND" WHO COMES 3 HOURS A DAY TO HELP WITH ERRANDS.
--- NOTE | 2019-06-23 19:00 | NUR ---
NURSE NOTES: Received a report from Jose Martin Bahena RN. Pt is in stable condition. AAOX4. Able to make needs known. No c/o pain/discomfort. IV site is patent and intact. Bed in lowest position. Call light within reach. Will continue to monitor.
--- NOTE | 2019-06-23 19:08 | NUR ---
HAND-OFF: Report given to Aryan FIELD RN.
[2019-06-23 20:00] VITALS: BP 130/52
[2019-06-23] MEDS: Enoxaparin 40mg Inj SUBQ SCH (20:34)
[2019-06-23] MEDS: Atorvastatin 20mg tab ORAL SCH (20:35)
[2019-06-23] MEDS: Levemir Flexpen SUBQ SCH (20:36)
--- NOTE | 2019-06-23 21:49 | General Progress Note ---
Assessment/Plan Problem List: (1) History of hypertension ICD Codes: Z86.79 - Personal history of other diseases of the circulatory system SNOMED: 989705136 (2) History of diabetes mellitus ICD Codes: Z86.39 - Personal history of other endocrine, nutritional and metabolic disease SNOMED: 491920577 (3) Pelvic fracture ICD Codes: S32.9XXA - Fracture of unspecified parts of lumbosacral spine and pelvis, initial encounter for closed fracture SNOMED: 73623274 Qualifiers: Qualified Codes: S32.9XXA - Fracture of unspecified parts of lumbosacral spine and pelvis, initial encounter for closed fracture (4) Fall ICD Codes: W19.XXXA - Unspecified fall, initial encounter SNOMED: 8830128, 671517978 Qualifiers: Qualified Codes: W19.XXXA - Unspecified fall, initial encounter (5) Unable to walk ICD Codes: R26.2 - Difficulty in walking, not elsewhere classified SNOMED: 246098251 Status: progressing Assessment/Plan: Mitchel Bahena is a 84 yo woman with PMH of HTN, CAD, and IDDM who presented after mechanical fall with left hip pain, found with nondisplaced fracture of left sacrum. Mechanical fall Left sacrum and anterior pelvic fracture - Orthopedics Dr. Antoine to evaluate,- nonoperative. WBAT with PT, DVT PPx with lovenox SBQ for at least one month. Follow up with ortho in 7-10 days. - Pain control with tylenol 650mg PO q6hrs PRN mild pain, oxycodone 5mg PO q6hrs PRN moderate pain, oxycodone 10mg PO q6hrs PRN severe pain - PT consult. Case management consult for d/c planning, will need rehab. Patient refusing SNF or rehab at the moment. WOuld like to go home. Will continue to discuss with patient. DM2 on insulin with hyperglycemia- IMproving - Patient states on insulin at home, unable to state dose - Increase Levemir to 10 units QHS and increase novolog to 4 units TID AC. - Monitor FS qachs and adjust as needed HTN, CAD - Continue entresto - Continue ASA 81 mg PO daily - Continue plavix 75mg PO daily - Continue isordil 20mg PO Q8hr FEN: Carbs consistent diet No IVF Lovenox DVT ppx Full Code Discussed with patient and RN. I spent 27 minutes on this patient's care, including >50% counseling and coordination of care. Subjective Date patient seen: Jun 23, 2019 Constitutional: Denies: chills, diaphoresis, fever, malaise, weakness, other HEENT: Denies: eye pain, blurred vision, tearing, double vision, ear pain, ear discharge, nose pain, nose congestion, throat pain, throat swelling, mouth pain , mouth swelling, other Cardiovascular: Denies: chest pain, edema, irregular heart rate, lightheadedness, palpitations, syncope, other Respiratory: Denies: cough, orthopnea, shortness of breath, SOB with excertion , SOB at rest, sputum, stridor, wheezing, other Gastrointestinal/Abdominal: Denies: abdomen distended, abdominal pain, black stools, tarry stools, blood in stool, constipated, diarrhea, difficulty swallowing, nausea, poor appetite, poor fluid intake, rectal bleeding, vomiting , other Genitourinary: Denies: burning, discharge, frequency, flank pain, hematuria, incontinence, pain, urgency, other Neurologic/Psychiatric: Denies: anxiety, depressed, emotional problems, headache, numbness, paresthesia, pre-existing deficit, seizure, tingling, tremors, weakness, other Endocrine: Denies: excessive sweating, flushing, intolerance to cold, intolerance to heat, increased hunger, increased thirst, increased urine, unexplained weight gain, unexplained weight loss, other Hematologic/Lymphatic: Denies: anemia, easy bleeding, easy bruising, other Allergies: Coded Allergies: No Known Allergies (Unverified , 06/20/19) Subjective NO acute events overnight Left hip pain 2/2 Left sacrum and anterior pelvis fracture: constant, 8/10, nonradiating. Improved since admission. Non operative per ortho. Follow up with ortho as outpatient in 7-10 days. Objective Last 24 Hour Vital Signs Date Time Temp Pulse Resp B/P (MAP) Pulse Ox O2 Delivery O2 Flow Rate FiO2 06/23/19 21:14 130/52 06/23/19 20:00 98.0 83 20 130/52 (78) 96 06/23/19 16:00 98.2 66 20 130/56 (80) 96 06/23/19 14:00 117/56 06/23/19 12:00 98.2 76 20 117/56 (76) 95 06/23/19 09:00 Room Air 06/23/19 08:10 75 116/50 06/23/19 07:38 98.1 75 20 116/50 (72) 97 06/23/19 05:53 138/52 06/23/19 04:00 98.2 70 16 138/52 (80) 95 06/23/19 00:00 98.4 67 18 129/52 (77) 95 Intake and Output 06/22/19 06/23/19 19:00 07:00 Intake Total 360 ml Balance 360 ml Intake Oral 360 ml # Voids 3 2 Laboratory Tests 06/23/19 04:41: White Blood Count 7.1, Red Blood Count 4.24, Hemoglobin 13.1, Hematocrit 38.5, Mean Corpuscular Volume 91, Mean Corpuscular Hemoglobin 30.9, Mean Corpuscular Hemoglobin Concent 34.0, Red Cell Distribution Width 11.7, Platelet Count 140L, Mean Platelet Volume 8.7, Neutrophils (%) (Auto) 75.9H, Lymphocytes (%) (Auto) 13.1L, Monocytes (%) (Auto) 8.5, Eosinophils (%) (Auto) 2.0, Basophils (%) (Auto ) 0.6, Sodium Level 139, Potassium Level 3.8, Chloride Level 105, Carbon Dioxide Level 28, Anion Gap 6, Blood Urea Nitrogen 13, Creatinine 0.6, Estimat Glomerular Filtration Rate , Glucose Level 209H, Calcium Level 8.6 Height (Feet): 5 Height (Inches): 3.00 Weight (Pounds): 140 General Appearance: WD/WN, no apparent distress EENT: PERRL/EOMI, normal ENT inspection Neck: non-tender, normal alignment, supple Cardiovascular: normal peripheral pulses, normal rate, regular rhythm, no JVD Respiratory/Chest: chest wall non-tender, lungs clear, normal breath sounds Abdomen: normal bowel sounds, non tender, soft, no mass Extremities: other - left hip TTP, no erythema, warmth or drainage. 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 Jun 23, 2019 21:49
[2019-06-24] VITALS: BP 127/49
[2019-06-24 04:00] VITALS: BP 137/53
[2019-06-24 05:55] LABS: BASOPHILS % (AUTO) 0.7 % (0.0-2.0); EOSINOPHILS % (AUTO) 1.2 % (0.0-3.0); HEMATOCRIT 36.8 % (37.0-47.0); HEMOGLOBIN 12.7 G/DL (12.0-16.0); LYMPHOCYTES % (AUTO) 13.5 % (20.0-45.0); MEAN CORPUSCULAR VOLUME 90 FL (80-99); MONOCYTES % (AUTO) 10.3 % (1.0-10.0); NEUTROPHILS % (AUTO) 74.3 % (45.0-75.0); PLATELET COUNT 159 K/UL (150-450); RED BLOOD COUNT 4.09 M/UL (4.20-5.40); RED CELL DISTRIBUTION WIDTH 11.3 % (11.6-14.8); WHITE BLOOD COUNT 7.5 K/UL (4.8-10.8)
[2019-06-24] MEDS: sitaGLIPtin 50mg tab ORAL SCH (05:57)
[2019-06-24] MEDS: NovoLOG Insulin Flexpen SUBQ SCH ×7 (05:58→21:29)
[2019-06-24 06:09] LABS: ANION GAP 7 mmol/L (5-15); BLOOD UREA NITROGEN 12 mg/dL (7-18); CALCIUM 8.7 MG/DL (8.5-10.1); CARBON DIOXIDE 27 MMOL/L (21-32); CHLORIDE 104 MMOL/L (98-107); CREATININE 0.7 MG/DL (0.55-1.30); PHOSPHORUS 3.1 MG/DL (2.5-4.9); POTASSIUM 3.8 MMOL/L (3.5-5.1); SODIUM 138 MMOL/L (136-145)
--- NOTE | 2019-06-24 06:53 | NUR ---
HAND-OFF: Report given to Jose Martin Bahena RN.
[2019-06-24 08:00] VITALS: BP 114/51
[2019-06-24] MEDS: Aspirin Baby 81mg ORAL SCH (08:41)
[2019-06-24] MEDS: Docusate 100mg cap ORAL SCH ×2 (08:41→21:23)
[2019-06-24] MEDS: oxyCODONE 5mg IR tab ORAL PRN (08:45)
[2019-06-24] MEDS: Metoprolol Succinate XL 50mg tab ORAL SCH (09:00)
--- NOTE | 2019-06-24 09:34 | NUR ---
NURSE NOTES: PT AXOX4, CALM, RESTING IN BED. PT STATES PAIN OF LEFT HIP. RN ADMINISTERED PRN OXYCODONE 10MG ORDERED. BED IN LOWEST POSITION WITH BEDSIDE RAILS X2. CALL LIGHT WITHIN REACH. WILL CONTINUE TO MONITOR.
[2019-06-24 12:00] VITALS: BP 143/57
--- NOTE | 2019-06-24 12:21 | NUR ---
CASE MANAGEMENT:REVIEW 06/24/19 SI: S/P FALL FRACTURED LT SACRUM AND ANTERIOR PELVIS 98.2 84 14 114/51 96% ON RA GLUCOSE+199 IS: LEVEMIR SQ QHS INSULIN SQ TID AC ASA PO QD PLAVIX PO QD TOPROL XL PO QD ENTRESTO PO QD JANUVIA PO QAM ISORDIL PO Q8HRS LOVENOX SQ QD : MED/SURG STATUS 4 EAST DCP: FROM HOME PLAN: PLAN IS FOR PATIENT TO RETURN HOME ~ SHE IS REFUSING SNF AND ARU
--- NOTE | 2019-06-24 13:02 | NUR ---
NURSE NOTES: RN AND DR JASMYN KEITH AT BEDSIDE WITH PT. MD EDUCATED PT ON PLAN TO DISCHARGE TO SNF FOR REHAB. PT REFUSES, STATING SHE WILL NEVER GO TO A [facility]. RN EXPLAINED THERE ARE [facility] AVAILABLE IN [place]. PT CONTINUED TO REFUSE PLACEMENT TO SNF. EXPLAINED SAFETY/FALL RISKS. PT CONTINUES TO STATE SHE HAS FRIENDS WHO CAN COME AND HELP HER, AND JUST NEEDS A WALKER AT HOME. Addendum: 06/24/19 at 1512 by FELISA SALCEDO RN RN RN SPOKE TO ANGIE NEWTON AND MADE AWARE OF PT REFUSING SNF/REHAB AND WANTS TO GO HOME UPON DISCHARGE.
--- NOTE | 2019-06-24 15:29 | NUR ---
DISCHARGE PLANNING FAXED CLINCALS AND [facility] T: [phone] F: [phone] AWAIT ACCEPTANCE
[2019-06-24 16:00] VITALS: BP 130/56
--- NOTE | 2019-06-24 16:12 | General Progress Note ---
Assessment/Plan Problem List: (1) History of hypertension ICD Codes: Z86.79 - Personal history of other diseases of the circulatory system SNOMED: 188261135 (2) History of diabetes mellitus ICD Codes: Z86.39 - Personal history of other endocrine, nutritional and metabolic disease SNOMED: 651308666 (3) Pelvic fracture ICD Codes: S32.9XXA - Fracture of unspecified parts of lumbosacral spine and pelvis, initial encounter for closed fracture SNOMED: 13705106 Qualifiers: Qualified Codes: S32.9XXA - Fracture of unspecified parts of lumbosacral spine and pelvis, initial encounter for closed fracture (4) Fall ICD Codes: W19.XXXA - Unspecified fall, initial encounter SNOMED: 4956999, 505118653 Qualifiers: Qualified Codes: W19.XXXA - Unspecified fall, initial encounter (5) Unable to walk ICD Codes: R26.2 - Difficulty in walking, not elsewhere classified SNOMED: 182188471 Status: progressing Assessment/Plan: Mitchel Bahena is a 84 yo woman with PMH of HTN, CAD, and IDDM who presented after mechanical fall with left hip pain, found with nondisplaced fracture of left sacrum. Mechanical fall Left sacrum and anterior pelvic fracture 2/2 mechanical fall - Orthopedics Dr. Antoine to evaluate,- nonoperative. WBAT with PT, DVT PPx with lovenox SBQ for at least one month. Follow up with ortho in 7-10 days. - Pain control with tylenol 650mg PO q6hrs PRN mild pain, oxycodone 5mg PO q6hrs PRN moderate pain, oxycodone 10mg PO q6hrs PRN severe pain - PT consult. Case management consult for d/c planning, will need rehab. Patient refusing SNF at the moment. Will work on acute rehab hospital. Discussed with casemanagement. DM2 on insulin with hyperglycemia- IMproving - Patient states on insulin at home, unable to state dose - Levemir to 10 units QHS and novolog to 4 units TID AC. - Monitor FS qachs and adjust as needed HTN, CAD s/p stent in 01/2019 - Continue entresto - Continue ASA 81 mg PO daily - Continue plavix 75mg PO daily - Continue isordil 20mg PO Q8hr FEN: Carbs consistent diet No IVF Lovenox DVT ppx Full Code Discussed with patient, RN, and clinical case manager. I spent 37 minutes on this patient 's care, including >50% counseling and coordination of care. Subjective Constitutional: Denies: chills, diaphoresis, fever, malaise, weakness, other HEENT: Denies: eye pain, blurred vision, tearing, double vision, ear pain, ear discharge, nose pain, nose congestion, throat pain, throat swelling, mouth pain , mouth swelling, other Cardiovascular: Denies: chest pain, edema, irregular heart rate, lightheadedness, palpitations, syncope, other Respiratory: Denies: cough, orthopnea, shortness of breath, SOB with excertion , SOB at rest, sputum, stridor, wheezing, other Gastrointestinal/Abdominal: Denies: abdomen distended, abdominal pain, black stools, tarry stools, blood in stool, constipated, diarrhea, difficulty swallowing, nausea, poor appetite, poor fluid intake, rectal bleeding, vomiting , other Genitourinary: Denies: burning, discharge, frequency, flank pain, hematuria, incontinence, pain, urgency, other Neurologic/Psychiatric: Denies: anxiety, depressed, emotional problems, headache, numbness, paresthesia, pre-existing deficit, seizure, tingling, tremors, weakness, other Endocrine: Denies: excessive sweating, flushing, intolerance to cold, intolerance to heat, increased hunger, increased thirst, increased urine, unexplained weight gain, unexplained weight loss, other Hematologic/Lymphatic: Denies: anemia, easy bleeding, easy bruising, other Allergies: Coded Allergies: No Known Allergies (Unverified , 06/20/19) Subjective NO acute events overnight Left hip pain 2/2 Left sacrum and anterior pelvis fracture: Much improved. intermittent when moving. 05/02. nonradiating. Improved since admission. Objective Last 24 Hour Vital Signs Date Time Temp Pulse Resp B/P (MAP) Pulse Ox O2 Delivery O2 Flow Rate FiO2 06/24/19 14:52 143/57 06/24/19 12:00 97.5 78 22 143/57 (85) 95 06/24/19 09:00 Room Air 06/24/19 09:00 84 114/51 06/24/19 08:00 98.2 84 14 114/51 (72) 96 06/24/19 05:57 137/53 06/24/19 04:00 99.1 74 20 137/53 (81) 95 06/24/19 00:00 98.1 75 20 127/49 (75) 95 06/23/19 21:14 130/52 06/23/19 21:00 Room Air 06/23/19 20:00 98.0 83 20 130/52 (78) 96 Intake and Output 06/23/19 06/24/19 19:00 07:00 Intake Total 480 ml Balance 480 ml Intake Oral 480 ml # Voids 3 2 Laboratory Tests 06/24/19 05:21: White Blood Count 7.5, Red Blood Count 4.09L, Hemoglobin 12.7, Hematocrit 36.8L , Mean Corpuscular Volume 90, Mean Corpuscular Hemoglobin 31.1H, Mean Corpuscular Hemoglobin Concent 34.5, Red Cell Distribution Width 11.3L, Platelet Count 159, Mean Platelet Volume 8.3, Neutrophils (%) (Auto) 74.3, Lymphocytes (%) (Auto) 13.5L, Monocytes (%) (Auto) 10.3H, Eosinophils (%) (Auto ) 1.2, Basophils (%) (Auto) 0.7, Sodium Level 138, Potassium Level 3.8, Chloride Level 104, Carbon Dioxide Level 27, Anion Gap 7, Blood Urea Nitrogen 12 , Creatinine 0.7, Estimat Glomerular Filtration Rate , Glucose Level 199H, Calcium Level 8.7, Phosphorus Level 3.1, Magnesium Level 2.0 Height (Feet): 5 Height (Inches): 3.00 Weight (Pounds): 140 General Appearance: WD/WN, no apparent distress, alert EENT: PERRL/EOMI Neck: non-tender, normal alignment, supple Cardiovascular: normal peripheral pulses, normal rate, regular rhythm Respiratory/Chest: chest wall non-tender, lungs clear, normal breath sounds Abdomen: normal bowel sounds, non tender, soft Extremities: other - left hip C/d/i. 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 Jun 24, 2019 16:12
--- NOTE | 2019-06-24 16:15 | NUR ---
NURSE NOTES: PER NOEL (MADHU), PT CAN BE PLACED AT [facility] IF PT DOES NOT WANT TO GO ANYWHERE BUT HOME UPON DISCHARGE. PT STATES ALL SHE NEEDS IS A WALKER OR WHEELCHAIR FOR HOME AND HER FRIENDS WILL HELP HER AT HOME. RN EDUCATED PT SHE HAS NOT BEEN ABLE TO WALK INDEPENDENTLY AND NEEDS MAX ASSIST TO TRANSFER TO CHAIR AT BEDSIDE. PT CONTINUES TO DENY NEED FOR REHAB UPON DISCHARGE AND STATES SHE WILL ONLY GO HOME UPON DISCHARGE. RN LEFT MESSAGE FOR NOEL WITH UPDATE.
--- NOTE | 2019-06-24 16:52 | NUR ---
Social Service Note Patient refusing placement upon discharge. MADHU spoke with patient's senior electrical project manager Albina at [facility] [phone]. Albina states apartment building is for independent adults. Patient has a [facility] provider however only receives about 70 hours a month. Patient's neighbors check on patient however they have expressed not wanting to be responsible with patient's care. Albina also indicates patient's dgt lives out of state and she doesn't contact her often. Albina doesn't have her contact information on file. Albina provided nephew's contact information Reynolds Sophia [phone] and carlos Morrell Pete [phone]. Nijulia's phone number is out of services and MADHU left a message for nephew. Per Albina patient's neighbor will speak with patient about placement. ANGIE referred patient to ARU in addition to SNF. Will monitor and follow up. MADHU aware patient is refusing ARU as well.
--- NOTE | 2019-06-24 19:14 | NUR ---
HAND-OFF: Report given to Beck SCHILLING RN.
--- NOTE | 2019-06-24 19:15 | NUR ---
NURSE NOTES: Received report from Jose Martin Bahena RN. Patient in bed, awake and able to make needs known. No c/o pain at this time. On nasal cannula 2L with no signs of distress or SOB. IV intact and saline locked. Bed locked and in lowest position. Call light in easy reach. Will continue to monitor the patient.
[2019-06-24 20:00] VITALS: BP 128/54
[2019-06-24] MEDS: Atorvastatin 20mg tab ORAL SCH (21:23)
[2019-06-24] MEDS: Enoxaparin 40mg Inj SUBQ SCH (21:26)
[2019-06-24] MEDS: Levemir Flexpen SUBQ SCH (21:27)
[2019-06-25] VITALS: BP 134/53
[2019-06-25 04:00] VITALS: BP 143/51
[2019-06-25] MEDS: sitaGLIPtin 50mg tab ORAL SCH (05:52)
[2019-06-25] MEDS: NovoLOG Insulin Flexpen SUBQ SCH ×4 (06:04→12:53)
--- NOTE | 2019-06-25 07:16 | NUR ---
HAND-OFF: Report given to KATT Connelly.
--- NOTE | 2019-06-25 07:17 | NUR ---
NURSE NOTES: Received pt in bed, AAO x 4. on NC 2 L/min. No c/o of pain/distress. IV on R FA 20g intact and patent, with saline lock. Side rails x 2. Bed in the lowest, locked, and alarm on. Call light within reach. Will continue to monitor
[2019-06-25 08:00] VITALS: BP 138/56
[2019-06-25] MEDS: Metoprolol Succinate XL 50mg tab ORAL SCH (08:36)
[2019-06-25] MEDS: Docusate 100mg cap ORAL SCH (08:36)
[2019-06-25] MEDS: Aspirin Baby 81mg ORAL SCH (08:36)
--- NOTE | 2019-06-25 11:23 | NUR ---
Social Service Note SW left a message for Albina manager transportation [phone] to get in contact with patient's neighbor to clarify their involvement with patient's care if patient was to return home. Second message left for Rodolfo Cortes [phone] nephew. No return call at this time. Will discuss with CM.
[2019-06-25 12:00] VITALS: BP 132/53
--- NOTE | 2019-06-25 12:04 | NUR ---
DISCHARGE PLANNING PER MD'S REQUEST PATIENT HAS BEEN REFERRED TO [facility] AND HAS BEEN ACCEPTED [facility] ([facility] [address] [place] [address] [address]IAN IS DR PANDA T: [phone] FOR NURSE TO NURSE REPORT [facility] HAS BEEN PLACED ON "WILL CALL" .......NURSE TO ACTIVATE
[2019-06-25] MEDS ORDERED: PLAVIX75 MG ORAL (12:36)
[2019-06-25] MEDS ORDERED: LEVEMIR FL100 UNIT/1 SUBQ (12:36)
[2019-06-25] MEDS ORDERED: ROXICODONE5 MG ORAL (12:36)
[2019-06-25] MEDS ORDERED: LIPITOR20 MG ORAL (12:36)
[2019-06-25] MEDS ORDERED: NOVOLOG100 UNITS1 SUBQ ×2 (12:36)
[2019-06-25] MEDS ORDERED: JANUVIA50 MG ORAL (12:36)
[2019-06-25] MEDS ORDERED: MIRALAX119 GM ORAL (12:36)
[2019-06-25] MEDS ORDERED: ASPIRIN81 MG ORAL (12:36)
[2019-06-25] MEDS ORDERED: COLACE100 MG ORAL (12:36)
[2019-06-25] MEDS ORDERED: ISOSORBIDE DINI10 MG ORAL (12:36)
[2019-06-25] MEDS ORDERED: ACETAMINOPHEN325 M1 ORAL (12:36)
[2019-06-25] MEDS ORDERED: ENTRESTO 24 MG1 EACH ORAL (12:36)
[2019-06-25] MEDS ORDERED: LOVENOX10 M4 SUBQ (12:36)
[2019-06-25] MEDS ORDERED: Metoprolol Succinate ORAL (12:36)
--- NOTE | 2019-06-25 12:47 | Discharge Instructions ---
Discharge Instructions Discharge Instructions Services at Discharge: other - physical therapy. WBAT. Cleared by ortho Diet: regular Resume Normal Activity?: Yes Activity: ambulate w/ assist only Follow Up Orders Follow up with Dr. Antoine (orthopedic surgery) in 8-10 days Special Instructions weight bearing as tolerated For Congestive Heart Failure Reminder Report to your physician any weight gain of 5 pounds or more in one week. Jared Guzman D.O. Jun 25, 2019 12:47
[2019-06-25 13:51] VITALS: BP 132/53
[2019-06-25] MEDS ORDERED: Flu Vaccine Pts Less than 65 Years old IM ONE (14:00)
--- NOTE | 2019-06-25 15:30 | NUR ---
NURSE NOTES: Patient is discharged to [facility] in stable condition via ambulance personal. Report given to KATT Garcia. ID and IV was removed. No s/s of infection on the removal site. Skin intact. Discharge prescriptions/instructions were given. Belongings were accounted for and given to patient. Patient notified her family/relatives herself.
--- NOTE | 2019-06-25 16:19 | Discharge Summary ---
Discharge Summary Hospital Course Date of Admission Jun 20, 2019 at 13:48 Date of Discharge Jun 25, 2019 at 15:30 Admitting Diagnosis hip fx, unable to walk HPI Mitchel Bahena is a 84 year old female who was admitted on Jun 20, 2019 at 13:48 for Hip Fracture, Unable To Walk Hospital Course Mitchel Bahena is a 84 yo woman with PMH of HTN, CAD, and IDDM who presented after mechanical fall with left hip pain, found with nondisplaced fracture of left sacrum. Mechanical fall Left sacrum and anterior pelvic fracture 2/2 mechanical fall - Orthopedics Dr. Antoine to evaluate,- nonoperative. WBAT with PT, DVT PPx with lovenox SBQ for at least one month. Follow up with ortho in 7-10 days. - Pain control with tylenol 650mg PO q6hrs PRN mild pain, oxycodone 5mg PO q6hrs PRN moderate pain, oxycodone 10mg PO q6hrs PRN severe pain - PT consult. Case management consult for d/c planning. Discharged to [facility] hospital for acute rehab. Patient accepted. DM2 on insulin with hyperglycemia- IMproving - Patient states on insulin at home, unable to state dose - Levemir 10 units QHS and novolog to 4 units TID AC. - Monitor FS qachs and adjust as needed HTN, CAD s/p stent in 01/2019 - Continue entresto - Continue ASA 81 mg PO daily - Continue plavix 75mg PO daily - Continue isordil 20mg PO Q8hr FEN: Carbs consistent diet No IVF Lovenox DVT ppx Full Code Discussed with RN, patient, physical therapy, and case management. > 30 minutes spent on discharge including counseling and care coordination. Discharge Condition Upon Discharge: improving Discharge Disposition Patient was discharged to [facility] acute rehab hospital Discharge Diagnoses: (1) Pelvic fracture (2) Fall (3) History of hypertension (4) History of diabetes mellitus (5) History of heart artery stent (6) CAD (coronary artery disease) Discharge Instructions Discharge Instructions Services Upon Discharge: other - physical therapy. WBAT. Cleared by ortho Activity: ambulate w/ assist only Jared Guzman D.O. Jun 25, 2019 16:19
== END 2019-06-25 15:30 | disposition short-term general hospital (02) | DRG 536 ==
LOC: EDBD 10:22 → EMR 10:52 → EDBEDREQ 13:36 → 4E 13:48
DX: S32.512A Fracture of superior rim of left pubis, initial encounter for closed fracture (principal); S32.592A Other specified fracture of left pubis, initial encounter for closed fracture; E11.65 Type 2 diabetes mellitus with hyperglycemia; W01.0XXA Fall on same level from slipping, tripping and stumbling without subsequent striking against object, initial encounter; R26.2 Difficulty in walking, not elsewhere classified; Z79.4 Long term (current) use of insulin; I10 Essential (primary) hypertension; I25.10 Atherosclerotic heart disease of native coronary artery without angina pectoris
CPT/HCPCS: 36415; 72192; 80048; 80053; 82962; 83036; 83735; 84100; 85025; 85610; 85730; 86850; 86900; 86901; 90689; 96374; 99285; J1815; J2405; S5561